=== PATIENT | female | born 1960 | race Caucasian/White ===

== ENCOUNTER → 2018-05-13 | Outpatient (CLI) | payer OTHER ==
[2018-05-13 14:51] LABS: HCT 44.2 % (34.0-46.0); HGB 14.5 gm/dL (11.4-16.0); MCH 29.8 pg (25.0-35.0); MCHC 32.8 g/dL (31.0-37.0); MCV 90.9 fL (80.0-100.0); Mean Platelet Volume 7.1; Platelet Count 295 k/uL (150-450); RBC 4.86 m/uL (3.80-5.40); RDW 13.7 % (11.5-15.5); WBC 6.1 k/uL (3.8-10.6)
[2018-05-13 14:55] LABS: Appearance,Urine Clear (Clear); Bilirubin,Urine Negative (Negative); Blood,Urine Negative (Negative); Color,Urine Light Yellow; Glucose,Urine (UA) Negative (Negative); Ketones,Urine Negative (Negative); Leukocyte Esterase,Urine Moderate (Negative); Nitrite,Urine Negative (Negative); Partial Thromboplastin Time 24.5 sec (22.0-30.0); Protein,Urine Negative (Negative); Prothrombin Time 9.8 sec (9.0-12.0); RBC,Urine 1 /hpf (0-5); Specific Gravity,Urine 1.015 (1.001-1.035); Squamous Epithelial Cell,Urine 1 /hpf (0-4); Urobilinogen,Urine <2.0 mg/dL (<2.0); WBC,Urine 11 /hpf (0-5)
[2018-05-13 14:56] LABS: ALT 28 U/L (9-52); AST 25 U/L (14-36); Albumin 4.4 g/dL (3.5-5.0); Alkaline Phosphatase 72 U/L (38-126); Anion Gap 12 mmol/L; Blood Urea Nitrogen 15 mg/dL (7-17); Calcium 9.5 mg/dL (8.4-10.2); Carbon Dioxide 25 mmol/L (22-30); Chloride 104 mmol/L (98-107); Glucose 84 mg/dL (74-99); Potassium 4.2 mmol/L (3.5-5.1); Sodium 141 mmol/L (137-145); Total Bilirubin 0.5 mg/dL (0.2-1.3); Total Protein 7.2 g/dL (6.3-8.2)
== END | disposition home or self-care (01) ==
LOC: LABPAT 14:04
PROVIDERS: ATTEND Orthopaedic Surgery
DX: Z01.818 Encounter for other preprocedural examination (principal); Z01.812 Encounter for preprocedural laboratory examination
CPT/HCPCS: 36415; 80053; 81001; 85027; 85610; 85730; 87070; 93005

== ENCOUNTER 2018-05-18 09:15 | Inpatient (IN) | payer OTHER ==
[2018-05-10 14:58] VITALS: BMI 35.9
[~2018-05-18 09:15] MED LIST: ACETAMINOPHEN TAB 500 MG TAB PO ONE; DEXAMETHASONE SOD PHOSPHATE 10 MG/ML 1 ML VIAL IV ONE; MELOXICAM 7.5 MG TAB PO ONE; MIDAZOLAM 2 MG/2 ML VIAL IV PRN; ONDANSETRON 4 MG/2 ML VIAL IVP ONE; SCOPOLAMINE 1.5MG/72HR PATCH TRANSDERM ONE; TRANEXAMIC ACID 1,000 MG in SODIUM CHLORIDE 0.9% 50 ML IVPB ONE; ceFAZolin IN SWFI 2 GM/20 ML SYRINGE IVP ONE; fentaNYL (PF) 50 MCG/ML 2 ML AMP IV PRN
[2018-05-18] MEDS: LACTATED RINGERS 1,000 ML IV SCH ×2 (10:42→11:43)
[2018-05-18] MEDS ORDERED: LIDOCAINE 1% 20 ML VIAL (10MG/ML) FOR IV START INTRADERMA ONE (10:56)
[2018-05-18] MEDS ORDERED: ONDANSETRON 4 MG/2 ML VIAL IVP PRN (11:10)
[2018-05-18] MEDS ORDERED: hydrOXYzine PAMOATE 25 MG CAP PO PRN (11:10)
[2018-05-18] MEDS ORDERED: MAGNESIUM HYDROXIDE 2,400 MG/10 ML CUP PO PRN (11:10)
[2018-05-18] MEDS ORDERED: HYDROmorphone 0.5 MG/0.5 ML SYRINGE IVP PRN ×3 (11:10)
[2018-05-18] MEDS ORDERED: HYDROcodone/APAP 5-325MG 1 EACH TAB PO PRN ×2 (11:10)
[2018-05-18] MEDS ORDERED: DIAZEPAM 5 MG TAB PO PRN ×2 (11:10)
[2018-05-18] MEDS ORDERED: NALOXONE 0.4 MG/ML 1 ML VIAL IV PRN (11:10)
[2018-05-18] MEDS ORDERED: fentaNYL (PF) 50 MCG/ML 2 ML AMP ONE (11:45)
[2018-05-18] MEDS ORDERED: MIDAZOLAM 2 MG/2 ML VIAL ONE (11:45)
[2018-05-18] MEDS ORDERED: SODIUM CHLORIDE 0.9% 100 ML BAG ONE (11:45)
[2018-05-18] MEDS ORDERED: HEPARIN SODIUM,PORCINE 10,000 UNIT/ML 1 ML VIAL ONE (11:45)
[2018-05-18] MEDS ORDERED: TRANEXAMIC ACID 1,000 MG/10 ML VIAL ONE (11:45)
[2018-05-18] MEDS: ROPIVACAINE 246.25 MG, EPINEPHrine 0.5 MG, KETOROLAC 30 MG, cloNIDine HCL/PF 80 MCG, WA... MISCELLANE ONE ×10 (12:19→12:55)
[2018-05-18] MEDS ORDERED: ceFAZolin 3,000 MG in SODIUM CHLORIDE 0.9% IRRIGATIO 3,000 ML IRRIGATION ONE (12:19)
--- NOTE | 2018-05-18 13:00 | P.OP ---
Date of Procedure: 05/18/18 Preoperative Diagnosis: Severe osteoarthritis left hip Postoperative Diagnosis: Severe osteoarthritis left hip Procedure(s) Performed: Left total hip arthroplasty with a direct anterior approach Implants: Ibanez and nephew Polarstem size 0 standard Ibanez & Nephew R3, 3 hole acetabular shell, 48 mm Ibanez & Nephew reflection 6.5 mm cancellus screw, 20 mm 2 Ibanez & Nephew R3, XLPE 20 acetabular liner Ibanez & Nephew Oxinium femoral head 32 m, +4 All components were press-fit. The articulation is Oxinium on polyethylene. Anesthesia: spinal Surgeon: Alfredo Selby Assistant Manager Of Operations #1: Kendy Alexander Estimated Blood Loss (ml): 100 (67 mL returned with Cell Saver) Pathology: other (Femoral head) Condition: stable Disposition: PACU Indications for Procedure: After failure of conservative treatment we discussed the surgical and nonsurgical treatment options at length. Patient wishes to proceed with a total hip arthroplasty with a direct anterior approach. Complications specific to this procedure were discussed at length, including but not limited to infection, leg length discrepancy, dislocation, and nerve injury. Patient is aware of all these complications and informed consent was obtained Operative Findings: The operative findings are consistent with severe osteoarthritis of the left hip Description of Procedure: Patient was seen and evaluated in the preoperative area, consent was reviewed, and the surgical site was marked with a skin marker. Patient was then brought to the operating room and given prophylactic antibiotics intravenously. 1 g of Tranexamic acid was also given. A spinal anesthetic was administered by the anesthesia department. The patient was then placed on the [place] table with the bony prominences well-padded. The hip area was then prepped and draped in usual sterile fashion. A universal timeout was then performed, which confirmed the patient's name, surgical site, ALLERGIES, and procedure being performed. Next the incision site was located at 1 cm distal and 1 cm lateral to the anterior superior iliac spine. The skin and subcutaneous tissues were sharply incised. Incision was carefully dissected down to the fascia overlying the tensor fascia sherrie muscle. This fascia was then incised in line with the incision. Next, using blunt finger dissection, the tensor fascia sherrie muscle was dissected off its investing fascia. The muscle was then carefully retracted laterally with a cobra retractor over the lateral neck of the femur. Next, the circumflex vessels were identified and cauterized using the AquaMantis device. The anterior hip capsule was then exposed. The capsule was then opened and an inverted T fashion. Cobra retractors were then placed intracapsularly. The proximal femur was then visualized. The femoral neck was then osteotomized appropriate level above the lesser trochanter. Small amount of traction was placed with the [place] table. A small wedge of bone was then removed from the remaining femoral head. Next, using a corkscrew femoral head was easily removed from the acetabulum. On gross visual inspection, the femoral head had complete loss of articular cartilage in multiple periarticular osteophytes. Attention was then turned to the acetabulum. the acetabulum was exposed and any remaining labrum was excised. Sequential reaming of the acetabulum was performed using fluoroscopic guidance. When the appropriate size was reached, a trial was then placed. The position and fit of the trial was checked with fluoroscopy. The trial was then removed. Then, using fluoroscopic guidance, the final implant was impacted at 20 of anteversion and 40 of abduction, and fully seated in the acetabulum. 2 screws were then placed in the acetabulum. Again fluoroscopy was used to check position of the screws. Next, the liner was then impacted, with a 20 elevated liner located in the anterior superior quadrant. Component locking was confirmed. Attention was then directed to the femur. With the aid of the [place] table, the femur was externally rotated to approximately 130, extended, and abducted under the opposite leg. A side hook was then placed under the proximal femur, and the side hook elevator was used to elevate the proximal femur. Retractors were then placed. A capsular release was performed, as well as a release of the conjoined tendon, which afforded excellent visualization of the proximal femur. Next, a box osteotome was used to lateralize the proximal femur. A magazine hand was then used to locate the femoral canal. Sequential broaching was then performed with appropriate size which afforded excellent fixation in the proximal femur. A trial was then placed with appropriate head and neck, and the hip was gently reduced with the aid of the [place] table. Fluoroscopy was then used to check position of the components, as well as to ensure equal leg lengths. The hip was then gently dislocated and the trials were then removed. Final implants were then impacted and the hip was again reduced. Final fluoroscopic x-rays confirmed that the components were in anatomic position, as well as equal leg lengths. The hip was also taken through range of motion, and found to be stable. The hip was then copiously irrigated with antibiotic solution with pulsatile lavage. The hip was then irrigated with Irrisept solution. The soft tissues were then injected with a ropivacaine solution, which consisted of 246.25 mg of ropivacaine, 0.5 mg of epinephrine, 30 mg of Toradol, 80 g of clonidine, and 48.45 mL of sterile water, for a total of 100 mL of fluid injected. A second dose of 1 g of Tranexamic acid was also given. the fascia was then closed with 2-0 strata fix suture. The subcutaneous tissue was closed with 3-0 Vicryl. The subcuticular tissue was closed with 3-0 strata fix suture. The skin was then closed with Dermabond glue and a sterile silver dressing. The patient was then transferred to the recovery room in stable condition. The surveyor instrument assistant ELEAZAR Lima was required due to the complexity of surgery, and the need for skilled surgical consultant for positioning, draping, exposure, retraction, and closure of the wound.
[2018-05-18] MEDS ORDERED: ONDANSETRON 4 MG/2 ML VIAL IVP ONE (13:32)
--- NOTE | 2018-05-18 13:32 | XR ---
Limited left hip HISTORY: Hip replacement 2 intraoperative views of the left hip document the procedure
--- NOTE | 2018-05-18 13:34 | FL ---
Fluoroscopy HISTORY: Hip replacement 48 seconds fluoroscopy time supplied to the referring clinician. 2 intraoperative C-arm images docum ent the procedure. See dictated report from orthopedic surgery.
--- NOTE | 2018-05-18 14:02 | XR ---
Limited left hip HISTORY: Postop left hip arthroplasty Single frontal view of the left hip Patient is status post left hip arthroplasty. There is anatomic alignment. Lucency in the soft tissue s is postoperative. IMPRESSION: Orthopedic follow-up.
[2018-05-18 14:05] VITALS: RESP 16
[2018-05-18] MEDS ORDERED: LACTATED RINGERS 1,000 ML IV ONE (14:30)
[2018-05-18] MEDS: ePHEDrine 50 MG/ML 1 ML AMP IVP ONE ×3 (15:30→16:05)
[2018-05-18] MEDS: ceFAZolin IN SWFI 2 GM/20 ML SYRINGE IVP SCH (19:19)
[2018-05-18] MEDS: SODIUM CHLORIDE 0.9% 1,000 ML IV SCH (19:26)
[2018-05-18] MEDS ORDERED: SENNOSIDES-DOCUSATE SODIUM 1 EACH TAB PO SCH (21:00)
[2018-05-18] MEDS: ASPIRIN 325 MG TAB PO SCH (21:05)
[2018-05-18] MEDS ORDERED: LOPERAMIDE 2 MG CAP PO PRN (21:09)
--- NOTE | 2018-05-18 22:17 | CONS ---
CONSULTATION REASON FOR CONSULTATION: Advice regarding hypertension and other multiple medical issues, requested by Dr. Selby. HISTORY OF PRESENT ILLNESS: This 57-year-old woman with a past medical history of multiple medical problems, including GERD, hypertension, DJD, was admitted after left total hip joint arthroplasty by Dr. Selby. There is no history of any chest pain, no history of palpitations, no history of headache, loss of consciousness, seizures, nausea, vomiting, diarrhea, fever, rigor or chills at this time. PAST MEDICAL HISTORY: 1. GERD. 2. Hypertension. 3. DJD. 4. History of cardiac murmurs. 5. History of anxiety. 6. Depression. HOME MEDICATIONS: Home medications are reviewed and include: 1. Norvasc 5 mg each morning. 2. Zoloft 100 mg each morning. 3. Prilosec 20 mg each morning. 4. Imodium 2 mg daily p.r.n. 5. Motrin 400 mg at bedtime. 6. Motrin 600 mg p.o. each morning. 7. Garlic 1 tablet p.o. daily. 8. Neurontin 200 mg p.o. daily. 9. Vitamin D3 5000 daily. 10.Tylenol 1000 mg p.o. q.6 p.r.n. ALLERGIES: CIPRO and DEMEROL. FAMILY HISTORY: History of cancer in the family. SOCIAL HISTORY: No history of smoking. No history of alcohol intake. REVIEW OF SYSTEMS: ENT: No diminished hearing. No diminished vision. CARDIOVASCULAR SYSTEM: No angina, palpitations. RESPIRATORY SYSTEM: No cough, hemoptysis. GI: No nausea, vomiting. : No dysuria or retention. NERVOUS SYSTEM: No numbness, weakness. ALLERGY/IMMUNOLOGY: No asthma, hayfever. MUSCULOSKELETAL: As mentioned earlier. HEMATOLOGY/ONCOLOGY: No history of anemia. ENDOCRINE: No history of diabetes, hypothyroidism. CONSTITUTIONAL: As mentioned earlier. DERMATOLOGY: Negative. RHEUMATOLOGY: Negative. PSYCHIATRY: As mentioned earlier. PHYSICAL EXAMINATION: Patient is alert and oriented x3. Pulse is 76, blood pressure 103/58, respirations 16, temperature 97 degrees, pulse ox 92% on room air. HEENT: Conjunctivae normal. Oral mucosa moist. NECK: No jugular venous distention. No carotid bruit. No lymph node enlargement. CARDIOVASCULAR SYSTEM: S1, S2 muffled. No S3. No S4. RESPIRATORY SYSTEM: Breath sounds diminished at the bases. No rhonchi. No crackles. ABDOMEN: Soft, non-tender. No mass palpable. LEGS: Status post left hip arthroplasty. NERVOUS SYSTEM: Higher functions as mentioned earlier. Moves all 4 limbs. No focal motor or sensory deficit. LYMPHATICS: No lymph node palpable in neck, axillae or groin. SKIN: No ulcer, rash, bleeding. LABS: Outpatient CBC within normal limits. Coags are within normal limits. Chemistry also normal. UA is unremarkable except 11 WBCs. ASSESSMENT: 1. Status post left total hip joint arthroplasty for severe degenerative joint disease. 2. Gastroesophageal reflux disease. 3. Hypertension. 4. History of degenerative joint disease. 5. Cardiac murmur. 6. section. 7. Cholecystectomy. 8. History of anxiety, depression. 9. Rule out urinary tract infection. RECOMMENDATIONS AND DISCUSSION: In this 57-year-old woman who presented after surgery, at this time I recommend to continue current medications, continue symptomatic treatment. I recommend resuming the home medications. I would also recommend UA with micro for the possibility of any UTIs. Otherwise, hold NSAIDs for now and further recommendations will follow. Thank you, Dr. Selby, for letting us participate in the care of this patient. MMODL / IJN: [id number] /
[2018-05-18 23:14] LABS: Appearance,Urine Clear (Clear); Bilirubin,Urine Negative (Negative); Blood,Urine Negative (Negative); Color,Urine Light Yellow; Glucose,Urine (UA) Negative (Negative); Ketones,Urine Negative (Negative); Leukocyte Esterase,Urine Negative (Negative); Nitrite,Urine Negative (Negative); Protein,Urine Negative (Negative); Specific Gravity,Urine 1.006 (1.001-1.035); Urobilinogen,Urine <2.0 mg/dL (<2.0)
[2018-05-19] MEDS: ceFAZolin IN SWFI 2 GM/20 ML SYRINGE IVP SCH (01:00)
[2018-05-19] MEDS ORDERED: PANTOPRAZOLE 40 MG TABLET PO SCH (07:30)
[2018-05-19] MEDS ORDERED: CHOLECALCIFEROL 1,000 UNIT TAB PO SCH (09:00)
[2018-05-19] MEDS ORDERED: GABAPENTIN 100 MG CAP PO SCH (09:00)
[2018-05-19] MEDS ORDERED: SERTRALINE 100 MG TAB PO SCH (09:00)
[2018-05-19] MEDS ORDERED: amLODIPine 5 MG TAB PO SCH (09:00)
[2018-05-19] MEDS ORDERED: MELOXICAM 7.5 MG TAB PO SCH (09:00)
[2018-05-19] MEDS: SODIUM CHLORIDE 0.9% 1,000 ML IV SCH (10:59)
[2018-05-19] MEDS: ASPIRIN 325 MG TAB PO SCH (11:00)
[2018-05-19] MEDS: LACTATED RINGERS 1,000 ML IV SCH (11:01)
[2018-05-19 11:16] LABS: Basophils % (A) 0 %; Eosinophils % (A) 0 %; HCT 37.4 % (34.0-46.0); HGB 11.9 gm/dL (11.4-16.0); Lymphocytes # (A) 0.8 k/uL (1.0-4.8); Lymphocytes % (A) 8 %; MCH 29.5 pg (25.0-35.0); MCHC 31.9 g/dL (31.0-37.0); MCV 92.3 fL (80.0-100.0); Mean Platelet Volume 7.6; Monocytes # (A) 0.6 k/uL (0-1.0); Monocytes % (A) 6 %; Neutrophils # (A) 8.4 k/uL (1.3-7.7); Neutrophils % (A) 85 %; Platelet Count 259 k/uL (150-450); RBC 4.06 m/uL (3.80-5.40); RDW 13.8 % (11.5-15.5); WBC 9.9 k/uL (3.8-10.6)
--- NOTE | 2018-05-19 11:23 | P.DS ---
Providers Date of admission: 05/18/18 09:48 Expected date of discharge: 05/19/18 Attending physician: Alfredo Selby Consults: 05/18/18 11:10 Consult Physician Routine Consulting Provider: Jody Fisher Consult Reason/Comments: medical management Do you want consulting provider notified?: Yes 05/18/18 17:32 Consult Physician Routine Consulting Provider: Suzan Laguerre Consult Reason/Comments: medical management Do you want consulting provider notified?: Yes Primary care physician: Gerardo Underwood - Discharge Diagnosis(es) (1) S/P total hip arthroplasty Current Visit: Yes Status: Acute (2) Primary osteoarthritis of left hip Current Visit: Yes Status: Acute Hospital Course: This is a 57-year-old female with known history of degenerative arthritis of the left hip. The patient presents for evaluation. After discussion and consideration patient elects to proceed with total hip arthroplasty. The patient is seen preoperatively by Dr. Selby and cleared for surgery. Patient is admitted to [facility] on 05/18/2018 for total hip arthroplasty. The procedures performed without complication or sequelae. The patient is doing well postoperatively. Labs and vital signs are stable on day of discharge. On day of discharge patient's hip incision is healing well. There is minimal erythema. There is no drainage noted at this time. There is minimal soft tissue swelling to the hip and thigh. Patient has full foot and ankle motion without difficulty or pain. Neurovascular status to the left lower extremity is intact. Patient is discharged home in good condition. Please see med rec for accurate list of home medications. Plan - Discharge Summary Discharge Rx Participant: Yes New Discharge Prescriptions: New Aspirin 325 mg PO BID #60 tab HYDROcodone/APAP 5-325MG [Spencer 5-325] 1 - 2 tab PO Q4-6H PRN #90 tab PRN Reason: Pain Sennosides [Senokot] 1 tab PO BID #60 tablet No Action amLODIPine [Norvasc] 5 mg PO QAM Ibuprofen [Motrin] 400 mg PO HS Ibuprofen [Motrin] 600 mg PO QAM Gabapentin [Neurontin] 200 mg PO DAILY Cholecalciferol [Vitamin D3] 5,000 unit PO DAILY Sertraline [Zoloft] 100 mg PO QAM Omeprazole [PriLOSEC] 20 mg PO QAM Garlic 1 tab PO DAILY Loperamide [Imodium] 2 mg PO DAILY PRN PRN Reason: Diarrhea Acetaminophen Tab [Tylenol Tab] 1,000 mg PO Q6HR PRN PRN Reason: Pain Discharge Medication List Cholecalciferol [Vitamin D3] 5,000 unit PO DAILY 05/10/18 [History] Gabapentin [Neurontin] 200 mg PO DAILY 05/10/18 [History] Garlic 1 tab PO DAILY 05/10/18 [History] Ibuprofen [Motrin] 400 mg PO HS 05/10/18 [History] Ibuprofen [Motrin] 600 mg PO QAM 05/10/18 [History] Omeprazole [PriLOSEC] 20 mg PO QAM 05/10/18 [History] Sertraline [Zoloft] 100 mg PO QAM 05/10/18 [History] amLODIPine [Norvasc] 5 mg PO QAM 05/10/18 [History] Acetaminophen Tab [Tylenol Tab] 1,000 mg PO Q6HR PRN 05/18/18 [History] Loperamide [Imodium] 2 mg PO DAILY PRN 05/18/18 [History] Aspirin 325 mg PO BID #60 tab 05/19/18 [Rx] HYDROcodone/APAP 5-325MG [Spencer 5-325] 1 - 2 tab PO Q4-6H PRN #90 tab 05/19/18 [ Rx] Sennosides [Senokot] 1 tab PO BID #60 tablet 05/19/18 [Rx] Follow up Appointment(s)/Referral(s): [facility], [NON-STAFF] - Alfredo Selby DO [Doctor of Osteopathic Medicine] - 2 Weeks Activity/Diet/Wound Care/Special Instructions: Weightbearing as tolerated with walker Leave dressing intact. Dressing may be removed by home care nurse in 10 days. May shower with dressing on. Follow-up with [facility] in 2 weeks, please call with any questions or concerns [phone] Discharge Disposition: HOME WITH HOME HEALTH SERVICES
[2018-05-19 14:41] VITALS: BP 108/62; PULSE 58; TEMP 98.6
--- NOTE | 2018-05-19 15:57 | PN ---
PROGRESS NOTE DATE OF SERVICE: 05/19/2018 INTERVAL HISTORY: This 57-year-old woman who was admitted after left hip joint arthroplasty, improving significantly. No chest pain. No palpitations. No fever. PHYSICAL EXAM: Alert and oriented x3. Pulse 70, blood pressure 107/62, respirations 16, temperature 97 degrees, pulse ox 97% on room air. HEENT: Conjunctivae normal. Oral mucosa moist. NECK is no jugular venous distention. No carotid bruit. No lymph node enlargement. CARDIAC systems: S1, S2 muffled. RESPIRATORY: Breath sounds diminished in the bases. No rhonchi. No crackles. ABDOMEN: Soft, nontender. LEGS: Status post surgery. NERVOUS SYSTEM: No focal deficits. LABS: CBC within normal limits. ASSESSMENT: 1. Status post left total hip joint arthroplasty for severe degenerative joint disease. 2. History of gastroesophageal reflux disease. 3. Hypertension. 4. Degenerative joint disease. 5. History of cardiac murmur. 6. History of Caesarean section. 7. Cholecystectomy. 8. Anxiety, depression. 9. No evidence of urinary tract infection. RECOMMENDATIONS AND DISCUSSION: Recommend to continue current medications, management and symptomatic treatment. Otherwise, at this time, I would recommend to resume the home medications. DVT prophylaxis. Incentive spirometry. Further recommendations to follow. MMODL / IJN: [id number] /
== END 2018-05-19 16:21 | disposition home health service (06) | DRG 470 ==
LOC: 2ORMAIN 09:48 → 3SUR 17:29
PROVIDERS: ADMIT Orthopaedic Surgery; ATTEND Orthopaedic Surgery
PROC: 0SRB06A Replacement of Left Hip Joint with Oxidized Zirconium on Polyethylene Synthetic Substitute, Uncemented, Open Approach (ICD-10-PCS; principal; 2018-05-18 11:30)
DX: M16.0 Bilateral primary osteoarthritis of hip (principal); F32.9 Major depressive disorder, single episode, unspecified; F41.9 Anxiety disorder, unspecified; I10 Essential (primary) hypertension; K21.9 Gastro-esophageal reflux disease without esophagitis; Z79.899 Other long term (current) drug therapy; Z80.9 Family history of malignant neoplasm, unspecified; Z88.1 Allergy status to other antibiotic agents; Z88.5 Allergy status to narcotic agent; Z83.3 Family history of diabetes mellitus; Z82.49 Family history of ischemic heart disease and other diseases of the circulatory system; Z79.1 Long term (current) use of non-steroidal anti-inflammatories (NSAID); Z90.49 Acquired absence of other specified parts of digestive tract
CPT/HCPCS: 73501; 81003; 85025; 86850; 86891; 86900; 86901; 88300

== ENCOUNTER → 2018-10-09 | Outpatient (CLI) | payer OTHER ==
[2018-10-09 11:35] LABS: HCT 41.9 % (34.0-46.0); HGB 13.7 gm/dL (11.4-16.0); MCH 29.7 pg (25.0-35.0); MCHC 32.7 g/dL (31.0-37.0); MCV 90.7 fL (80.0-100.0); Mean Platelet Volume 7.6; Platelet Count 261 k/uL (150-450); RBC 4.63 m/uL (3.80-5.40); WBC 5.8 k/uL (3.8-10.6)
[2018-10-09 11:54] LABS: Partial Thromboplastin Time 24.3 sec (22.0-30.0)
[2018-10-09 12:19] LABS: Appearance,Urine Clear (Clear); Bilirubin,Urine Negative (Negative); Blood,Urine Negative (Negative); Color,Urine Yellow; Glucose,Urine (UA) Negative (Negative); Ketones,Urine Negative (Negative); Leukocyte Esterase,Urine Negative (Negative); Nitrite,Urine Negative (Negative); Protein,Urine Negative (Negative); Specific Gravity,Urine 1.019 (1.001-1.035); Urobilinogen,Urine <2.0 mg/dL (<2.0)
[2018-10-09 12:43] LABS: ALT 17 U/L (9-52); AST 22 U/L (14-36); Albumin 3.6 g/dL (3.5-5.0); Alkaline Phosphatase 75 U/L (38-126); Anion Gap 6 mmol/L; Blood Urea Nitrogen 17 mg/dL (7-17); Calcium 9.4 mg/dL (8.4-10.2); Carbon Dioxide 28 mmol/L (22-30); Chloride 106 mmol/L (98-107); Glucose 94 mg/dL (74-99); Potassium 4.6 mmol/L (3.5-5.1); Sodium 140 mmol/L (137-145); Total Bilirubin 0.6 mg/dL (0.2-1.3)
== END | disposition home or self-care (01) ==
LOC: LABPAT 10:07
PROVIDERS: ATTEND Orthopaedic Surgery
DX: Z01.812 Encounter for preprocedural laboratory examination (principal)
CPT/HCPCS: 36415; 80053; 81003; 85027; 85610; 85730; 86850; 86900; 86901; 87070

== ENCOUNTER → 2018-10-09 | Outpatient (CLI) | payer OTHER | END | disposition home or self-care (01) | LOC: LABWHC1 10:05 | PROVIDERS: ATTEND Pediatrics | DX: R53.82 Chronic fatigue, unspecified (principal) | CPT/HCPCS: 36415; 84443 ==

== ENCOUNTER 2018-10-19 05:49 | Inpatient (IN) | payer OTHER ==
[~2018-10-19 05:49] MED LIST changes: -MIDAZOLAM 2 MG/2 ML VIAL IV PRN; +MORPHINE SULFATE 2 MG/ML SYRINGE IV PRN; +ONDANSETRON 4 MG/2 ML VIAL IVP PRN; -SCOPOLAMINE 1.5MG/72HR PATCH TRANSDERM ONE; -fentaNYL (PF) 50 MCG/ML 2 ML AMP IV PRN
[2018-10-19] MEDS ORDERED: ROPIVACAINE 246.25 MG, EPINEPHrine 0.5 MG, KETOROLAC 30 MG, cloNIDine HCL/PF 80 MCG, WA... MISCELLANE ONE ×5 (06:03)
[2018-10-19] MEDS: LACTATED RINGERS 1,000 ML IV SCH ×2 (06:32→23:58)
[2018-10-19] MEDS ORDERED: LIDOCAINE 1% 20 ML VIAL (10MG/ML) FOR IV START INTRADERMA ONE (06:33)
[2018-10-19] MEDS ORDERED: HYDROmorphone 1 MG/ML 1 ML SYRINGE IVP PRN ×3 (06:55)
[2018-10-19] MEDS ORDERED: HYDROcodone/APAP 7.5-325MG 1 EACH TAB PO PRN (06:55)
[2018-10-19] MEDS ORDERED: MAGNESIUM HYDROXIDE 2,400 MG/10 ML CUP PO PRN (06:55)
[2018-10-19] MEDS ORDERED: hydrOXYzine PAMOATE 25 MG CAP PO PRN (06:55)
[2018-10-19] MEDS ORDERED: DIAZEPAM 5 MG TAB PO PRN (06:55)
[2018-10-19] MEDS ORDERED: NALOXONE 0.4 MG/ML 1 ML VIAL IV PRN (06:55)
[2018-10-19] MEDS ORDERED: ceFAZolin 3,000 MG in SODIUM CHLORIDE 0.9% IRRIGATIO 3,000 ML IRRIGATION ONE (07:43)
--- NOTE | 2018-10-19 08:37 | P.OP ---
Date of Procedure: 10/19/18 Preoperative Diagnosis: Severe osteoarthritis right hip Postoperative Diagnosis: Severe osteoarthritis right hip Procedure(s) Performed: Right total hip arthroplasty with a direct anterior approach Implants: Ibanez and nephew Polarstem size 1 standard Ibanez & Nephew R3, 3 hole acetabular shell, 48 mm Ibanez & Nephew reflection 6.5 mm cancellus screw, 20 mm 2 Ibanez & Nephew R3, XLPE 20 acetabular liner Ibanez & Nephew Oxinium femoral head 32 m, +0 All components were press-fit. The articulation is Oxinium on polyethylene. Anesthesia: spinal Surgeon: Alfredo Selby Target Setter #1: Kendy Alexander Target Setter #2: Lo Christianson Estimated Blood Loss (ml): 50 Pathology: other (Femoral head) Condition: stable Disposition: PACU Indications for Procedure: After failure of conservative treatment we discussed the surgical and nonsurgical treatment options at length. Patient wishes to proceed with a total hip arthroplasty with a direct anterior approach. Complications specific to this procedure were discussed at length, including but not limited to infection, leg length discrepancy, dislocation, and nerve injury. Patient is aware of all these complications and informed consent was obtained Operative Findings: The operative findings are consistent with severe osteoarthritis of the right hip Description of Procedure: Patient was seen and evaluated in the preoperative area, consent was reviewed, and the surgical site was marked with a skin marker. Patient was then brought to the operating room and given prophylactic antibiotics intravenously. 1 g of Tranexamic acid was also given. A spinal anesthetic was administered by the anesthesia department. The patient was then placed on the [place] table with the bony prominences well-padded. The hip area was then prepped and draped in usual sterile fashion. A universal timeout was then performed, which confirmed the patient's name, surgical site, ALLERGIES, and procedure being performed. Next the incision site was located at 1 cm distal and 1 cm lateral to the anterior superior iliac spine. The skin and subcutaneous tissues were sharply incised. Incision was carefully dissected down to the fascia overlying the tensor fascia sherrie muscle. This fascia was then incised in line with the incision. Next, using blunt finger dissection, the tensor fascia sherrie muscle was dissected off its investing fascia. The muscle was then carefully retracted laterally with a cobra retractor over the lateral neck of the femur. Next, the circumflex vessels were identified and cauterized using the AquaMantis device. The anterior hip capsule was then exposed. The capsule was then opened and an inverted T fashion. Cobra retractors were then placed intracapsularly. The proximal femur was then visualized. The femoral neck was then osteotomized appropriate level above the lesser trochanter. Small amount of traction was placed with the [place] table. A small wedge of bone was then removed from the remaining femoral head. Next, using a corkscrew femoral head was easily removed from the acetabulum. On gross visual inspection, the femoral head had complete loss of articular cartilage in multiple periarticular osteophytes. Attention was then turned to the acetabulum. the acetabulum was exposed and any remaining labrum was excised. Sequential reaming of the acetabulum was performed using fluoroscopic guidance. When the appropriate size was reached, a trial was then placed. The position and fit of the trial was checked with fluoroscopy. The trial was then removed. Then, using fluoroscopic guidance, the final implant was impacted at 20 of anteversion and 40 of abduction, and fully seated in the acetabulum. 2 screws were then placed in the acetabulum. Again fluoroscopy was used to check position of the screws. Next, the liner was then impacted, with a 20 elevated liner located in the anterior superior quadrant. Component locking was confirmed. Attention was then directed to the femur. With the aid of the [place] table, the femur was externally rotated to approximately 130, extended, and abducted under the opposite leg. A side hook was then placed under the proximal femur, and the side hook elevator was used to elevate the proximal femur. Retractors were then placed. A capsular release was performed, as well as a release of the conjoined tendon, which afforded excellent visualization of the proximal femur. Next, a box osteotome was used to lateralize the proximal femur. A hand tool lapper was then used to locate the femoral canal. Sequential broaching was then performed with appropriate size which afforded excellent fixation in the proximal femur. A trial was then placed with appropriate head and neck, and the hip was gently reduced with the aid of the [place] table. Fluoroscopy was then used to check position of the components, as well as to ensure equal leg lengths. The hip was then gently dislocated and the trials were then removed. Final implants were then impacted and the hip was again reduced. Final fluoroscopic x-rays confirmed that the components were in anatomic position, as well as equal leg lengths. The hip was also taken through range of motion, and found to be stable. The hip was then copiously irrigated with antibiotic solution with pulsatile lavage. The hip was then irrigated with Irrisept solution. The soft tissues were then injected with a ropivacaine solution, which consisted of 246.25 mg of ropivacaine, 0.5 mg of epinephrine, 30 mg of Toradol, 80 g of clonidine, and 48.45 mL of sterile water, for a total of 100 mL of fluid injected. A second dose of 1 g of Tranexamic acid was also given. the fascia was then closed with 2-0 strata fix suture. The subcutaneous tissue was closed with 3-0 Vicryl. The subcuticular tissue was closed with 3-0 strata fix suture. The skin was then closed with Dermabond glue and a sterile silver dressing. The patient was then transferred to the recovery room in stable condition. The retirement assistant ELEAZAR Lima was required due to the complexity of surgery, and the need for skilled certified surgical tech/first assistant for positioning, draping, exposure, retraction, and closure of the wound.
--- NOTE | 2018-10-19 09:04 | XR ---
EXAMINATION TYPE: XR Hip Limited RT DATE OF EXAM: 10/19/2018 COMPARISON: NONE HISTORY: Postop TECHNIQUE: One view submitted. FINDINGS: There is a prosthetic hip in near anatomic alignment. There is soft tissue edema and emphysema. IMPRESSION: 1. Postoperative change. Appears in near-anatomic alignment.
--- NOTE | 2018-10-19 09:16 | FL ---
EXAMINATION TYPE: FL guidance operating room DATE OF EXAM: 10/19/2018 HISTORY: Flouroscopy time 43 seconds of fluoroscopy provided. IMPRESSION: 1. Fluoroscopy time.
[2018-10-19 10:25] VITALS: BMI 36.1
[2018-10-19] MEDS: SODIUM CHLORIDE 0.9% 1,000 ML IV SCH ×2 (10:44→21:01)
[2018-10-19] MEDS: ASPIRIN 325 MG TAB PO SCH ×2 (10:47→21:01)
[2018-10-19] MEDS ORDERED: LOPERAMIDE 2 MG CAP PO PRN (12:39)
[2018-10-19] MEDS: ceFAZolin IN SWFI 2 GM/20 ML SYRINGE IVP SCH (15:13)
[2018-10-19] MEDS: HYDROcodone/APAP 7.5-325MG 1 EACH TAB PO PRN (18:23)
--- NOTE | 2018-10-19 19:56 | CONS ---
CONSULTATION DATE OF SERVICE: 10/19/2018. REASON FOR CONSULTATION: Advice regarding hypertension and other medical illness requested by Dr. Selby. HISTORY OF PRESENT ILLNESS: This 58-year-old woman with past medical history of hypertension, GERD, history of DJD, Caesarean section, history of anxiety, depression, being followed by Dr. Gerardo Underwood in the outpatient setting, was admitted after hip replacement. There is no history of chest pain. No history of palpitations, headache, loss of consciousness, nausea and vomiting, diarrhea, fevers, rigors or chills. PAST MEDICAL HISTORY: History of GERD, hypertension, memory impairment, DJD, heart murmur, history of anxiety/depression. MEDICATIONS: Prior to admission include home medications are: 1. Norvasc 5 mg q.h.s. 2. Zinc 25 mg daily. 3. Zoloft 100 mg q.a.m. 4. Prilosec 20 mg q.a.m. 5. Imodium 2 mg daily p.r.n. 6. Motrin 400 mg q.h.s. 7. Motrin 600 mg q.a.m. 8. Garlic 1 tablet daily. 9. Neurontin 200 mg b.i.d. 10.Vitamin D3 5000 daily. ALLERGIES: CIPRO FAMILY HISTORY: History of thyroid cancer in the family. SOCIAL HISTORY: No history of smoking. No history of alcohol intake. REVIEW OF SYSTEMS: ENT: No diminished hearing, diminished vision. Cardiovascular: No angina or palpitations. Respiratory: No cough. GI: No nausea or vomiting. : No dysuria. Nervous system: No focal deficits. ALLERGY/IMMUNOLOGY: No asthma or hayfever. MUSCULOSKELETAL as mentioned earlier. HEMATOLOGY/ONCOLOGY: No history of anemia. ENDOCRINE: No diabetes or hypothyroidism. CONSTITUTIONAL: As mentioned earlier. Dermatology: Negative. Rheumatology: Negative. Psychiatry: As mentioned earlier. PHYSICAL EXAM: Patient is alert, oriented x3. The pulse is 75, blood pressure 102/60, respirations 16, temperature normal, pulse ox 98% on room air. HEENT: Oral mucosa moist. Neck is no jugular venous distention. No carotid bruit. No lymph node enlargement. Cardiovascular: S1, S2. Respirations: Breath sounds diminished in the bases. No rhonchi. No crackles. ABDOMEN: Soft, nontender. Legs is status post surgery. Nervous system: No focal deficits. Skin: No ulcer, rash or bleeding. Joints: As mentioned earlier. LABS: CBC and BMP is done, within normal limits. ASSESSMENT: 1. Status post right total hip joint arthroplasty via anterior approach for severe degenerative joint disease. 2. History of hypertension. 3. History of gastroesophageal reflux disease. 4. History of degenerative joint disease. 5. History of cardiac murmurs. 6. History of cholecystectomy. 7. History of anxiety, depression. RECOMMENDATIONS AND DISCUSSION: In this 58-year-old woman who presented with multiple complex medical issues, we will monitor the patient closely, continue the current medications, management and symptomatic treatment. I recommend continue the home medications. Otherwise, DVT prophylaxis. Incentive spirometry. Follow the patient closely with you. Thank you Dr. Selby for letting us participate in the care of this patient. MMJORGEL / GUERDAN: [id number] / MTDD
[2018-10-19] MEDS ORDERED: SENNOSIDES-DOCUSATE SODIUM 1 EACH TAB PO SCH (21:00)
[2018-10-20] MEDS: ceFAZolin IN SWFI 2 GM/20 ML SYRINGE IVP SCH (00:01)
[2018-10-20] MEDS: HYDROcodone/APAP 7.5-325MG 1 EACH TAB PO PRN ×3 (05:32→11:39)
[2018-10-20] MEDS: ASPIRIN 325 MG TAB PO SCH (08:04)
[2018-10-20] MEDS ORDERED: GABAPENTIN 100 MG CAP PO SCH (09:00)
[2018-10-20] MEDS ORDERED: PANTOPRAZOLE 40 MG TABLET PO SCH (09:00)
[2018-10-20] MEDS ORDERED: MELOXICAM 7.5 MG TAB PO SCH (09:00)
[2018-10-20] MEDS ORDERED: amLODIPine 5 MG TAB PO SCH (09:00)
[2018-10-20] MEDS ORDERED: CHOLECALCIFEROL 1,000 UNIT TAB PO SCH (09:00)
[2018-10-20] MEDS ORDERED: SERTRALINE 100 MG TAB PO SCH (09:00)
[2018-10-20 09:28] LABS: Basophils % (A) 0 %; Eosinophils % (A) 1 %; HCT 36.3 % (34.0-46.0); HGB 11.9 gm/dL (11.4-16.0); Lymphocytes # (A) 0.8 k/uL (1.0-4.8); Lymphocytes % (A) 13 %; MCH 30.1 pg (25.0-35.0); MCHC 32.7 g/dL (31.0-37.0); MCV 92.1 fL (80.0-100.0); Mean Platelet Volume 7.3; Monocytes # (A) 0.3 k/uL (0-1.0); Monocytes % (A) 5 %; Neutrophils # (A) 4.7 k/uL (1.3-7.7); Neutrophils % (A) 79 %; Platelet Count 235 k/uL (150-450); RBC 3.94 m/uL (3.80-5.40); RDW 14.2 % (11.5-15.5)
--- NOTE | 2018-10-20 09:35 | P.DS ---
Providers Date of admission: 10/19/18 05:49 Expected date of discharge: 10/20/18 Attending physician: Alfredo Selby Consults: 10/19/18 06:55 Consult Physician Routine Consulting Provider: Suzan Laguerre Consult Reason/Comments: medical management Do you want consulting provider notified?: Yes Primary care physician: Jody Fisher - Discharge Diagnosis(es) (1) Primary osteoarthritis of right hip Current Visit: Yes Status: Acute (2) S/P total hip arthroplasty Current Visit: No Status: Acute Hospital Course: This is a 58-year-old female with known history of degenerative arthritis of the right hip. The patient presents for evaluation. After discussion and consideration patient elects to proceed with total hip arthroplasty. The patient is seen preoperatively by Dr. Selby and medically cleared for surgery by their primary care physician. Patient is admitted to [facility] on 10/19/2018 for total hip arthroplasty. The procedures performed without complication or sequelae. The patient is doing well postoperatively. Labs and vital signs are stable on day of discharge. On day of discharge patient's hip incision is healing well. There is minimal erythema. There is no drainage noted at this time. There is minimal soft tissue swelling to the hip and thigh. Patient has full foot and ankle motion without difficulty or pain. Neurovascular status to the right lower extremity is intact. Patient is discharged home in good condition. Please see med rec for accurate list of home medications. Plan - Discharge Summary Discharge Rx Participant: Yes New Discharge Prescriptions: New Aspirin [Adult Low Dose Aspirin EC] 81 mg PO BID 30 Days #60 tablet. HYDROcodone/APAP 7.5-325MG [[place] 7.5-325] 1 - 2 tab PO Q4-6H PRN #84 tab PRN Reason: Pain Sennosides [Senokot] 1 tab PO BID #60 tablet No Action amLODIPine [Norvasc] 5 mg PO QAM Ibuprofen [Motrin] 400 mg PO HS Ibuprofen [Motrin] 600 mg PO QAM Gabapentin [Neurontin] 200 mg PO DAILY Cholecalciferol [Vitamin D3] 5,000 unit PO DAILY Sertraline [Zoloft] 100 mg PO QAM Omeprazole [PriLOSEC] 20 mg PO QAM Garlic 1 tab PO DAILY Loperamide [Imodium] 2 mg PO DAILY PRN PRN Reason: Diarrhea Zinc 25 mg PO DAILY Discharge Medication List Cholecalciferol [Vitamin D3] 5,000 unit PO DAILY 05/10/18 [History] Gabapentin [Neurontin] 200 mg PO DAILY 05/10/18 [History] Garlic 1 tab PO DAILY 05/10/18 [History] Ibuprofen [Motrin] 400 mg PO HS 05/10/18 [History] Ibuprofen [Motrin] 600 mg PO QAM 05/10/18 [History] Omeprazole [PriLOSEC] 20 mg PO QAM 05/10/18 [History] Sertraline [Zoloft] 100 mg PO QAM 05/10/18 [History] amLODIPine [Norvasc] 5 mg PO QAM 05/10/18 [History] Loperamide [Imodium] 2 mg PO DAILY PRN 05/18/18 [History] Zinc 25 mg PO DAILY 10/11/18 [History] Aspirin [Adult Low Dose Aspirin EC] 81 mg PO BID 30 Days #60 tablet. 10/20/18 [Rx] HYDROcodone/APAP 7.5-325MG [[place] 7.5-325] 1 - 2 tab PO Q4-6H PRN #84 tab [Rx] Sennosides [Senokot] 1 tab PO BID #60 tablet 10/20/18 [Rx] Follow up Appointment(s)/Referral(s): Alfredo Selby DO [Doctor of Osteopathic Medicine] - 2 Weeks Activity/Diet/Wound Care/Special Instructions: Weightbearing as tolerated with walker. Leave dressing intact. Dressing may be removed by home care nurse in 10 days. May shower with dressing on. Please follow-up with [facility] in 2 weeks and call with any questions or concerns, . Discharge Disposition: HOME WITH HOME HEALTH SERVICES
[2018-10-20 09:57] VITALS: BP 107/68; PULSE 69; RESP 18; TEMP 97.9
--- NOTE | 2018-10-20 15:57 | PN ---
PROGRESS NOTE DATE OF SERVICE: 10/20/2018 This 58-year-old woman who was admitted after right total hip joint arthroplasty by anterior approach is being closely monitored. No chest pain. No palpitations. Patient feels much better. On exam, alert and oriented x3. The pulse is 69, blood pressure 107/68, respiration 18, temperature 97.2, pulse ox 98% on room air. HEENT: Conjunctivae normal. NECK: No jugular venous distention. CARDIOVASCULAR SYSTEM: S1, S2 muffled. RESPIRATORY SYSTEM: Breath sounds diminished at the bases. No rhonchi. No crackles. ABDOMEN: Soft, non-tender. LEGS: Status post surgery. NERVOUS SYSTEM: No focal deficit. LABS: CBC within normal limits. ASSESSMENT: 1. Status post right hip total arthroplasty by anterior approach for severe degenerative joint disease. 2. History of hypertension. 3. History of gastroesophageal reflux disease. 4. History of degenerative joint disease. 5. History of cardiac murmur. 6. History of cholecystectomy. 7. History of anxiety, depression. RECOMMENDATION AND DISCUSSION: I recommend to continue current medication, continue symptomatic treatment. Otherwise, continue with DVT prophylaxis. Closely followed with Orthopedic Surgery. Further recommendations to follow. MMODL / IJN: [id number] /
[2018-10-20] MEDS ORDERED: ASPIRIN 81 MG PO SCH (21:00)
== END 2018-10-20 15:26 | disposition home health service (06) | DRG 470 ==
LOC: 2ORMAIN 05:49 → 4SSUR 09:24
PROVIDERS: ADMIT Orthopaedic Surgery; ATTEND Orthopaedic Surgery
PROC: 0SR906Z Replacement of Right Hip Joint with Oxidized Zirconium on Polyethylene Synthetic Substitute, Open Approach (ICD-10-PCS; principal; 2018-10-19 07:00)
DX: M16.0 Bilateral primary osteoarthritis of hip (principal); I10 Essential (primary) hypertension; K21.9 Gastro-esophageal reflux disease without esophagitis; F41.9 Anxiety disorder, unspecified; F32.9 Major depressive disorder, single episode, unspecified; Z90.49 Acquired absence of other specified parts of digestive tract; Z79.82 Long term (current) use of aspirin; Z79.899 Other long term (current) drug therapy; Z82.49 Family history of ischemic heart disease and other diseases of the circulatory system; Z83.3 Family history of diabetes mellitus; Z88.1 Allergy status to other antibiotic agents; Z88.5 Allergy status to narcotic agent
CPT/HCPCS: 73501; 85025; 86850; 86891; 86900; 86901; 88300

== ENCOUNTER → 2023-07-15 | Outpatient (CLI) | payer OTHER ==
--- NOTE | 2023-07-15 14:01 | CT ---
EXAMINATION TYPE: CT chest wo con DATE OF EXAM: 07/15/2023 COMPARISON: None HISTORY: c/o SOB CT DLP: 499.[address] of the chest was performed with lung and mediastinal window settings submitted. The la ck of contrast limits evaluation of the vascular, mediastinal and parenchymal structures including th e upper abdomen. LUNGS: Right perihilar infiltrate with air bronchograms seen. Correlate for pneumonia. Linear density left upper lobe medially may reflect parenchymal scar or atelectasis. Groundglass infiltrate left up per lobe noted as well. No evidence for nodule or mass. No evidence of pleural effusion. MEDIASTINUM/FROILAN: Thoracic aorta is of normal caliber with limited evaluation given lack of contrast . The heart is not enlarged. No evidence for mediastinal mass. No lymph nodes greater than 1cm. UPPER ABDOMEN: No significant abnormality is seen. OTHER: No significant other abnormality. IMPRESSION: 1. Right perihilar infiltrate with air bronchograms. Correlate for pneumonia. Appropriate follow up following therapeutic intervention.
== END | disposition home or self-care (01) ==
LOC: RADCTMAIN 13:08
PROVIDERS: ATTEND Family Medicine
DX: J98.4 Other disorders of lung (principal); R91.8 Other nonspecific abnormal finding of lung field; R06.02 Shortness of breath
CPT/HCPCS: 71250

== ENCOUNTER 2023-08-05 11:48 | Day surgery (SDC) | payer OTHER ==
[2023-08-04 11:28] VITALS: BMI 33.8
[~2023-08-05 11:48] MED LIST changes: -ACETAMINOPHEN TAB 500 MG TAB PO ONE; -DEXAMETHASONE SOD PHOSPHATE 10 MG/ML 1 ML VIAL IV ONE; +LACTATED RINGERS 1,000 ML IV SCH; +LIDOCAINE 1% (10MG/ML) FOR IV START INTRADERMA PRN; -MELOXICAM 7.5 MG TAB PO ONE; -MORPHINE SULFATE 2 MG/ML SYRINGE IV PRN; -ONDANSETRON 4 MG/2 ML VIAL IVP ONE; -ONDANSETRON 4 MG/2 ML VIAL IVP PRN; -TRANEXAMIC ACID 1,000 MG in SODIUM CHLORIDE 0.9% 50 ML IVPB ONE; -ceFAZolin IN SWFI 2 GM/20 ML SYRINGE IVP ONE
[2023-08-05 12:15] VITALS: TEMP 97.2
[2023-08-05] MEDS: LACTATED RINGERS 1,000 ML IV SCH (12:26)
[2023-08-05] MEDS ORDERED: PROPOFOL 10 MG/ML 20 ML VIAL IV ONE (12:30)
[2023-08-05] MEDS ORDERED: GLYCOPYRROLATE 0.2 MG/ML 2 ML VIAL ONE (12:30)
[2023-08-05] MEDS ORDERED: MIDAZOLAM 2 MG/2 ML VIAL ONE (12:30)
[2023-08-05] MEDS ORDERED: LIDOCAINE 2% INJ 20 MG/ML (2 ML VIAL) ONE (12:30)
[2023-08-05] MEDS ORDERED: KETAMINE 10 MG/ML 20 ML VIAL ONE (12:30)
[2023-08-05] MEDS ORDERED: LIDOCAINE 2% INJ 20 MG/ML INTRATRACH ONE ×2 (12:35→12:42)
--- NOTE | 2023-08-05 13:01 | P.PCN ---
Date of Procedure: 08/05/23 Preoperative Diagnosis: Bilateral pneumonia Postoperative Diagnosis: Severe tracheal bronchomalacia Significant narrowing of the orifice of the right middle lobe/dynamic obstruction with exhalation Diffuse mucosal inflammatory changes suggestive of an underlying viral/bacterial tracheal bronchitis Bronchial alveolar lavage of the lingula was done Procedure(s) Performed: Flexible bronchoscopy Airway inspection Bronchial alveolar lavage of the lingula Anesthesia: MAC Surgeon: Stacy Montero Estimated Blood Loss (ml): 0 Pathology: other Condition: stable Disposition: same day Operative Findings: A consent was obtained. A timeout was done. The procedure was done in the end oscopy suite. Anesthetic agents was given by anesthesia the bedside. The patient has been experiencing shortness of breath and the patient had some inflammatory changes/atelectatic changes in the lingular and the right middle lobe segments based on a CAT scan of the chest that was done preoperatively. This procedure was done under conscious sedation. The patient was given a simple mask with 10 L of oxygen. After achieving adequate sedation, the flexible bronchoscope was introduced through the left nostril and was advanced into the upper airway. The patient had dynamic collapsibility of the pharyngeal and laryngeal wall suggestive of underlying obstructive sleep apnea. The epiglottis was within normal limits. Examination of the upper airway structures included the vallecula, arytenoids and the vocal cords. Vocal cord function mobility was within normal limits. A total of 2 mL of 1% lidocaine was applied to the vocal cords and following to the flexible bronchoscope was introduced into the upper trachea. Examination airway was done. There was diffuse mucosal inflammatory changes and a mucosal surface was very much friable and erythematous. Areas of superficial bleeding was visualized on multiple occasions in the trachea and bilateral mainstem bronchi. At the same time, there was a component of severe tracheal bronchomalacia with dynamic obstruction of the airways with exhalation and coughing. The membranous trachea was very dynamic. The entire trachea was inspected and following that airway inspection included evaluation of the bilateral mainstem bronchi that again showed diffuse mucosal inflammatory changes. Examination of the right side included the right upper lobe bronchus, right middle lobe bronchus and the right lower lobe bronchus. I was unable to introduce the bronchoscope into the right middle lobe bronchus as the orifice of the right middle lobe bronchus was narrowed and it showed dynamic collapsibility. The various segments of the right lower lobe and the right upper lobe were visualized and the visibility was limited due to tracheal bronchomalacia. Similarly, if she is inflammatory changes and mucosal irritation was seen on the left including the secondary efrem between the left upper and left lower lobe. Examination of the left lung included the left upper lobe bronchus, lingular segment in the left lower lobe bronchus and the various segments. The bronchoscope was wedged into the lingula and the bronchial lavage was done. Aspirate was obviously bloody. A total of 60 mL of fluid was infused and 25 mL was aspirated. Therapeutic airway suctioning was done. The bronchoscope was removed and the patient was transferred to recovery in stable condition. Postoperative diagnosis Severe tracheal bronchomalacia Severe check a bronchitis Narrowing of the orifice of the right middle lobe bronchus Bronchial lavage of the lingula was done The microbial cultures will be obtained from the lavage and will contact the patient with those results.
[2023-08-05 13:38] VITALS: RESP 16
--- NOTE | 2023-08-05 13:48 | XR ---
EXAMINATION TYPE: XR chest 1V portable DATE OF EXAM: 08/05/2023 COMPARISON: 07/28/2023 HISTORY: Status post bronchial TECHNIQUE: Single frontal view of the chest is obtained. FINDINGS: No sizable pneumothorax. There is linear atelectasis thickening of the minor fissure. Tiny amount of fluid in the differential diagnosis but stable. A right perihilar prominence stable. No pl eural effusion or pneumothorax. Heart size normal. Limited inspiration. Osseous structures stable wit h hypertrophic and degenerative change spine. IMPRESSION: 1. Stable lung chronic atelectasis or tiny amount of fluid\thickening minor fissure. Prominent right hilum stable.
[2023-08-05 14:11] VITALS: BP 113/81; PULSE 96
== END 2023-08-05 14:28 | disposition home or self-care (01) ==
LOC: ORWHC2ENDO 11:48
PROVIDERS: ATTEND Internal Medicine Critical Care Medicine
DX: J98.11 Atelectasis (principal); J40 Bronchitis, not specified as acute or chronic; J18.9 Pneumonia, unspecified organism; J98.09 Other diseases of bronchus, not elsewhere classified; I10 Essential (primary) hypertension; K21.9 Gastro-esophageal reflux disease without esophagitis; M19.90 Unspecified osteoarthritis, unspecified site; F32.A Depression, unspecified; Z88.1 Allergy status to other antibiotic agents; Z88.8 Allergy status to other drugs, medicaments and biological substances; Z79.899 Other long term (current) drug therapy
CPT/HCPCS: 87070; 87205; 87116; 87102; 87206; 71045; 31624; J2001 ×2; J2250; J2704

== ENCOUNTER → 2025-02-13 | Outpatient (CLI) | payer OTHER ==
--- NOTE | 2025-02-14 22:59 | P.PCN ---
Date of Procedure: 02/13/25 Operative Findings: Home sleep study testing Date of service is 02/13/2025 History Of 65-year-old female patient suspected to have obstructive sleep apnea. The patient has snoring and sleep fragmentation and the patient also has an underlying nasal septal deviation. Comorbidities include tracheobronchomalacia noted by previous bronchoscopy hypertension, acid reflux, chronic anxiety and depression. Patient also has degenerative arthritis. Physical findings Weight is 171 pounds with a BMI of 30.3 Technical description The [employer] Ap[employer] system was used to complete his home sleep study. This is a type III home sleep study evaluation. The total recording duration was done in 9 hours and 31 minutes. The study started at 9:01 PM and the study ended at 6:32 AM. There was a total of 9 hours and 17 minutes of flow monitoring and 9 hours and 16 minutes of oxygen saturation monitoring. This was an adequate study Results Respiratory analysis showed a total of 13 obstructive apneas and total of 104 obstructive hypopneas. The resulting AHI was 12.6. No central events were noted Oxygenation analysis The patient had a baseline pulse ox of 98% while awake. Average pulse ox during sleep was 92% and lowest recorded pulse ox was 79% and the patient spent approximately 80 minutes of sleep time below pulse ox of 89% Cardiac summary Average heart rate was 70 minimum heart rate of 60 and a maximum heart rate of 103 Assessment Mild SHELIA with an AHI of 12.6 Mild nocturnal oxygen desaturation with a minimum pulse ox of 79% Tracheobronchomalacia Snoring Nasal septal deviation Chronic anxiety/depression Degenerative arthritis Hypertension Plan Will discuss findings with the patient Encourage weight loss Optimize sleep hygiene measures Consider CPAP therapy versus other alternatives for treatment of mild obstructive sleep apnea such as an oral appliance. Ultimate decision will be do ne after discussing those findings with the patient in the office and further recommendations are to follow.
== END ==
LOC: 3 N SLEEP 11:00
PROVIDERS: ATTEND Internal Medicine Critical Care Medicine
DX: G47.33 Obstructive sleep apnea (adult) (pediatric) (principal); J98.09 Other diseases of bronchus, not elsewhere classified; J34.2 Deviated nasal septum; F41.9 Anxiety disorder, unspecified; F32.A Depression, unspecified; I10 Essential (primary) hypertension; M19.90 Unspecified osteoarthritis, unspecified site; Z88.1 Allergy status to other antibiotic agents; Z88.5 Allergy status to narcotic agent

== ENCOUNTER 2025-06-14 13:51 | Day surgery (SDC) | payer OTHER ==
[~2025-06-14 13:51] MED LIST changes: -LIDOCAINE 1% (10MG/ML) FOR IV START INTRADERMA PRN
[2025-06-14] MEDS: IV FLUID CONTINUATION 1,000 ML IV ONE (14:05)
[2025-06-14 14:12] VITALS: TEMP 98.8
[2025-06-14] MEDS ORDERED: LIDOCAINE 1% INJ 10MG/ML (20 ML MDV) ONE (14:42)
[2025-06-14] MEDS ORDERED: PROPOFOL 10 MG/ML 20 ML VIAL IV ONE (14:42)
--- NOTE | 2025-06-14 14:58 | P.PCN ---
Date of Procedure: 06/14/25 Procedure(s) Performed: BRIEF HISTORY: Patient is a 64-year-old, pleasant, white female scheduled for an upper endoscopy as a part evaluation of functional history of GERD and intermittent dysphagia solids for the last several months duration. She is currently on omeprazole 40 mg daily. PREOPERATIVE DIAGNOSIS: GERD and intermittent dysphagia to solids. IV sedation per anesthesia. PROCEDURE: After informed consent was obtained, the patient was brought into the endoscopy unit. IV sedation was administered by Anesthesia under continuous monitoring. Initially the Olympus GIF-140 video endoscope was inserted into the mouth. Esophagus intubated without any difficulty. It was gradually advanced into the stomach and duodenum and carefully examined. The bulb and the second part of the duodenum appeared normal. The scope at this time was withdrawn to the stomach, adequately insufflated with air, and upon careful examination, mucosa of the antrum, and mild gastritis and biopsies were done from this area. Mucosa of the body, cardia and the fundus appeared normal. The scope was then withdrawn into the esophagus. The GE junction was located at 39 cm from the incisors. The lower esophageal sphincter appeared slightly tight but no obvious stricture identified. Because of the patient's symptoms I proceeded with empiric dilation of the distal esophagus using 20 mm TTS balloon for 30 seconds. The rest of the, biopsies were done from the mid and distal esophagus esophagus appeared normal. There were no erosions or ulcerations seen and the patient tolerated the procedure well. IMPRESSION: 1. Antral gastritis. 2. Slightly tight lower esophageal sphincter but no obvious stricture identi fied, status post empiric balloon dilation using 20 mm TTS balloon. RECOMMENDATIONS: The findings of this examination were discussed with the patient as well as family. She was advised to follow-up with the biopsy results. Clear liquids for 2 hours. Continue with omeprazole 40 mg daily and follow antireflux measures follow-up in the office 2 weeks..
[2025-06-14 15:21] VITALS: BP 144/93; PULSE 72; RESP 16
== END 2025-06-14 15:30 | disposition home or self-care (01) ==
LOC: ORWHC2ENDO 13:51
PROVIDERS: ATTEND Internal Medicine Gastroenterology
DX: K29.50 Unspecified chronic gastritis without bleeding (principal); R13.10 Dysphagia, unspecified; K21.9 Gastro-esophageal reflux disease without esophagitis; I10 Essential (primary) hypertension; G47.33 Obstructive sleep apnea (adult) (pediatric); F41.9 Anxiety disorder, unspecified; F32.A Depression, unspecified; M19.90 Unspecified osteoarthritis, unspecified site; J39.8 Other specified diseases of upper respiratory tract; Z99.89 Dependence on other enabling machines and devices; Z79.899 Other long term (current) drug therapy; Z88.1 Allergy status to other antibiotic agents; Z88.5 Allergy status to narcotic agent
CPT/HCPCS: 88305; 43239; 43249; J2003; J2704; C1726